=== PATIENT | female | born 1965 | race Caucasian/White ===

== ENCOUNTER → 2016-12-12 | Outpatient (CLI) | payer BC, OTHER ==
[~2016-12-12] MED LIST: ANOR1AER INH; ASPI1TAB PO; ASPI81CH PO; ATEN50TA2 PO; CELE20TA PO; CIPR500T89 PO; CITA40TA4 PO; CRES40TA PO; KEPP1000 PO; KEPP500T6 PO; LOSA100T36 PO; MULTCAP PO; NORC10TA2 PO; OMEP20CA3 PO; TRAZ100T4 PO; TRAZ1TAB25 PO; URIB118C PO; ZETI10TA2 PO
[2016-12-12 08:26] LABS: ALBUMIN 3.9 GM/DL (3.2-5.2); ALBUMIN/GLOBULIN RATIO 1.34 (1.00-1.93); BILIRUBIN,TOTAL 0.4 MG/DL (0.2-1.0); CALCIUM LEVEL 8.6 MG/DL (8.5-10.1); CREATININE FOR GFR 1.15 MG/DL (0.55-1.02); GLOMERULAR FILTRATION RATE 52.5 (>51); POTASSIUM SERUM 3.8 MEQ/L (3.5-5.1); TOTAL PROTEIN 6.8 GM/DL (6.4-8.2)
== END ==
LOC: M LAB 07:35
PROVIDERS: ATTEND Internal Medicine
DX: I10 Essential (primary) hypertension (principal); E78.2 Mixed hyperlipidemia; E11.9 Type 2 diabetes mellitus without complications

== ENCOUNTER → 2018-04-01 | Outpatient (CLI) | payer BC, OTHER ==
[2018-04-01 10:43] LABS: BASO # 0.1 10^3/uL (0.0-0.2); BASO % 0.5 % (0.0-1.0); EOS # 0.1 10^3/uL (0.0-0.50); EOS % 1.3 % (0.0-3.0); HEMATOCRIT 47.8 % (36.0-47.0); HEMOGLOBIN 16.1 g/dl (12.0-15.5); IMMATURE GRANULOCYTE % 0.4 % (0-3.0); LYMPH # 2.6 10^3/uL (1.5-4.5); LYMPH % 26.4 % (24.0-44.0); MEAN CORPUSCULAR HEMOGLOBIN 30.1 pg (27.0-33.0); MEAN CORPUSCULAR HGB CONC 33.7 g/dl (32.0-36.5); MEAN CORPUSCULAR VOLUME 89.3 fl (80.0-96.0); MONO # 0.5 10^3/uL (0.0-0.8); MONO % 4.9 % (0.0-5.0); NEUTROPHILS # 6.5 10^3/uL (1.8-7.7); NEUTROPHILS % 66.5 % (36.0-66.0); PLATELET COUNT, AUTOMATED 220 10^3/uL (150-450); RED BLOOD COUNT 5.35 10^6/uL (4.00-5.40); RED CELL DISTRIBUTION WIDTH 15.3 % (11.5-14.5); WHITE BLOOD COUNT 9.7 10^3/uL (4.0-10.0)
[2018-04-01 11:11] LABS: ALBUMIN 4.1 GM/DL (3.2-5.2); ALBUMIN/GLOBULIN RATIO 1.32 (1.00-1.93); ALKALINE PHOSPHATASE 77 U/L (45-117); ALT/SGPT 38 U/L (12-78); ANION GAP 9 MEQ/L (8-16); AST/SGOT 25 U/L (7-37); BILIRUBIN,TOTAL 0.3 MG/DL (0.2-1.0); BLOOD UREA NITROGEN 15 MG/DL (7-18); CALCIUM LEVEL 9.3 MG/DL (8.5-10.1); CARBON DIOXIDE LEVEL 31 MEQ/L (21-32); CHLORIDE LEVEL 106 MEQ/L (98-107); CHOLESTEROL LEVEL 197 MG/DL (<200); CHOLESTEROL RISK RATIO 4.191 (<5); CREATININE FOR GFR 0.93 MG/DL (0.55-1.30); FERRITIN 45 NG/ML (8-252); FOLATE 22.9 NG/ML (>5.4); GLOMERULAR FILTRATION RATE > 60.0 (>51); GLUCOSE, FASTING 120 MG/DL (70-100); HDL CHOLESTEROL 47 MG/DL (>40); IRON (FE) 76 UG/DL (50-170); LDL CHOLESTEROL 80.4 MG/DL (<100); NON-HDL-C 150 MG/DL; PERCENT SATURATION 18.8 % (13.2-45.0); POTASSIUM SERUM 3.6 MEQ/L (3.5-5.1); SODIUM LEVEL 146 MEQ/L (136-145); THYROID STIMULATING HORMONE 0.378 uIU/ML (0.358-3.740); TOTAL IRON BINDING CAPACITY 404 UG/DL (250-450); TOTAL PROTEIN 7.2 GM/DL (6.4-8.2); TRIGLYCERIDES LEVEL 348 MG/DL (<150); VITAMIN B12 LEVEL 626 PG/ML (247-911)
[2018-04-01 11:15] LABS: ESTIMATED AVERAGE GLUCOSE 154 MG/DL (60-110)
== END ==
LOC: M LAB 10:00
DX: E11.9 Type 2 diabetes mellitus without complications (principal); E78.5 Hyperlipidemia, unspecified; R53.83 Other fatigue
CPT/HCPCS: 82746

== ENCOUNTER → 2018-05-14 | Outpatient (CLI) | payer BC, OTHER ==
[2018-05-19 08:06] LABS: LEVETIRACETAM (KEPPRA) 46.6 ug/mL (10.0-40.0)
== END ==
LOC: M LAB 16:03
DX: R56.9 Unspecified convulsions (principal)
CPT/HCPCS: 36415

== ENCOUNTER → 2018-06-11 | Outpatient (CLI) | payer BC, OTHER ==
[2018-06-14 08:29] LABS: LEVETIRACETAM (KEPPRA) 43.3 ug/mL (10.0-40.0)
== END ==
LOC: M LAB 15:54
DX: R56.9 Unspecified convulsions (principal)
CPT/HCPCS: 36415

== ENCOUNTER → 2018-06-30 | Outpatient (CLI) | payer BC, OTHER ==
[2018-07-03 14:17] LABS: LEVETIRACETAM (KEPPRA) 14.8 ug/mL (10.0-40.0)
== END ==
LOC: M LAB 15:40
DX: Z51.81 Encounter for therapeutic drug level monitoring (principal); Z79.899 Other long term (current) drug therapy; R56.9 Unspecified convulsions
CPT/HCPCS: 80180

== ENCOUNTER → 2018-06-30 | Outpatient (CLI) | payer BC, OTHER ==
[2018-06-30 17:16] LABS: ESTIMATED AVERAGE GLUCOSE 128 MG/DL (60-110); HEMOGLOBIN A1c 6.1 %
== END ==
LOC: M LAB 15:36
DX: E11.9 Type 2 diabetes mellitus without complications (principal); R56.9 Unspecified convulsions
CPT/HCPCS: 83036

== ENCOUNTER → 2019-01-15 | Outpatient (REF) | payer OTHER ==
[~2019-01-15] MED LIST changes: -ASPI1TAB PO; -ASPI81CH PO; +ASPI81CH49 PO; +ASPI81TA26 PO; +CIPR-249 PO; -CIPR500T89 PO; -KEPP1000 PO; +KEPP10002 PO; +KEPP1TAB PO; -KEPP500T6 PO; -LOSA100T36 PO; +LOSA100T50 PO; -NORC10TA2 PO; +NORC1TAB5 PO; +TRAZ-163 PO; -TRAZ100T4 PO; -ZETI10TA2 PO; +ZETI10TA30 PO
[2019-01-17 14:43] LABS: HPV HYBRID CAPTURE II Negative (Negative)
== END ==
LOC: M SFHCWAGY 14:32
PROVIDERS: ATTEND Nurse Practitioner Women's Health
DX: Z12.4 Encounter for screening for malignant neoplasm of cervix (principal)
CPT/HCPCS: 87624; G0123

== ENCOUNTER → 2019-01-15 | Outpatient (CLI) | payer BC ==
--- NOTE | 2019-01-15 17:45 | REPMRS ---
Patient History The patient states she had a clinical breast exam in 11/2018. Family history of ovarian cancer at age 49 in sister. Digital Woman Screen Mammo: January 15, 2019 - Exam #: [id number] Bilateral CC and MLO view(s) were taken. Technologist: Светлана Romero, Technologist Prior study comparison: April 02, 2016, bilateral digital woman screen mammo, performed at [facility]. December 28, 2011, bilateral digital woman screen mammo, performed at [facility]. June 30, 2009, bilateral digital woman screen mammo, performed at [facility]. FINDINGS: The breast tissue is heterogeneously dense. This may lower the sensitivity of mammography. There is a stable well-circumscribed nodular opacity in the superior aspect of the left breast unchanged from multiple prior studies. In addition however, there is a nodular soft tissue density in the right breast superiorly and medially which appears more prominent. This merits further evaluation. It measures 12 x 16 by 12 mm. There is a moderate amount of heterogeneously dense fibroglandular tissue which is fairly symmetric. There is no other interval development of dominant mass, architectural distortion, or clustered microcalcification typical of malignancy. There has been no other change in the appearance of the mammogram from the prior studies. 3-D tomosynthesis shows no additional findings. Assessment: BI-RADS/ACR category 0 mammogram, Incomplete: Need additional imaging evaluation and/or prior mammograms for comparison. There is a nodular soft tissue density in the right breast superiorly and medially which appears more prominent. This merits further evaluation. It measures 12 x 16 by 12 mm. Recommendation Ultrasound and special view mammogram of the right breast. This patient's Lifetime Breast Cancer RIsk is estimated at 10.2 %. This mammogram was interpreted with the aid of an FDA-approved computer-aided dectection system. Electronically Signed By: Stewart Mota MD 01/15/19 [id number]
== END ==
LOC: M WHC 14:47
PROVIDERS: ATTEND Nurse Practitioner Women's Health
DX: Z12.31 Encounter for screening mammogram for malignant neoplasm of breast (principal); Z80.41 Family history of malignant neoplasm of ovary; N63.20 Unspecified lump in the left breast, unspecified quadrant; N63.10 Unspecified lump in the right breast, unspecified quadrant

== ENCOUNTER → 2019-01-23 | Outpatient (CLI) | payer BC, OTHER ==
--- NOTE | 2019-01-23 12:09 | REP ---
DIGITAL DIAGNOSTIC RIGHT BREAST MAMMOGRAPHY WITH CAD AND FOCUSED RIGHT BREAST SONOGRAPHY: HISTORY: Screening mammography January 15, 2019 was BIRADS category 0 because of a nodular density superiorly and medially in the right breast which appear more prominent than the prior study. MAMMOGRAPHIC FINDINGS: Magnified focal spot compression CC true ML, and MLO views confirm the presence of a well-circumscribed oval-shaped nodule measuring 17 mm in the posterior medial right breast. No other mammographic abnormality is seen. Breast parenchyma remains heterogeneously dense. SONOGRAPHIC FINDINGS: The right breast is scanned from 12-o'clock position to 3-o'clock position. Heterogeneous fibroglandular background echotexture is seen. At 1-o'clock position, approximately 11 cm from the nipple, there is a 14 x 6 x 12 mm septated cyst. No internal echoes or Doppler flow. This has a benign appearance. IMPRESSION: BIRADS 2: BI-RADS/ACR category 2 mammogram. Benign Findings. BIRADS category 2 benign findings. Benign cyst superior medial quadrant right breast. Repeat screening mammography recommended 1 year. This mammogram was interpreted with the aid of an FDA-approved computer-aided detection system. The patient states she had a clinical breast exam in November 2018. The patient letter being requested is M1 dense. Electronically Signed by Caesar Mota MD 01/23/2019 03:13 P
== END ==
LOC: M RAD 10:35
PROVIDERS: ATTEND Nurse Practitioner Women's Health
DX: N60.01 Solitary cyst of right breast (principal)

== ENCOUNTER → 2019-12-01 | Outpatient (CLI) | payer BC, OTHER ==
[~2019-12-01] MED LIST changes: +OMEP1CAP73 PO; -OMEP20CA3 PO; -TRAZ-163 PO; +TRAZ-257 PO; +ZETI10TA16 PO; -ZETI10TA30 PO
== END ==
LOC: M WUC 16:58
PROVIDERS: ATTEND Physician Assistant Medical
DX: G40.89 Other seizures (principal)

== ENCOUNTER → 2020-03-23 | Outpatient (CLI) | payer OTHER, BC ==
[2020-03-23 16:29] LABS: MEAN CORPUSCULAR HEMOGLOBIN 32.3 pg (27.0-33.0); MEAN CORPUSCULAR VOLUME 94.9 fl (80.0-96.0); PLATELET COUNT, AUTOMATED 167 10^3/uL (150-450); RED BLOOD COUNT 5.27 10^6/uL (4.00-5.40); WHITE BLOOD COUNT 10.2 10^3/uL (4.0-10.0)
[2020-03-23 16:37] LABS: ALT/SGPT 34 U/L (12-78); BILIRUBIN,TOTAL 0.5 MG/DL (0.2-1.0); BLOOD UREA NITROGEN 14 MG/DL (7-18); CALCIUM LEVEL 9.1 MG/DL (8.5-10.1); CARBON DIOXIDE LEVEL 31 MEQ/L (21-32); CHLORIDE LEVEL 107 MEQ/L (98-107); CHOLESTEROL LEVEL 216 MG/DL (<200); CHOLESTEROL RISK RATIO 5.268 (<5); FREE T4 1.19 NG/DL (0.76-1.46); GLOMERULAR FILTRATION RATE > 60.0 (>51); GLUCOSE, FASTING 108 MG/DL (70-100); HDL CHOLESTEROL 41 MG/DL (>40); LDL CHOLESTEROL 102 MG/DL (<100); NON-HDL-C 175 MG/DL; POTASSIUM SERUM 3.5 MEQ/L (3.5-5.1); SODIUM LEVEL 144 MEQ/L (136-145); THYROID STIMULATING HORMONE 0.644 uIU/ML (0.358-3.740); TOTAL PROTEIN 6.9 GM/DL (6.4-8.2); TRIGLYCERIDES LEVEL 365 MG/DL (<150)
[2020-03-23 16:39] LABS: TOTAL 25(OH) VITAMIN D 17.9 NG/ML (30.0-100.0)
[2020-03-23 16:46] LABS: HEMOGLOBIN A1c 6.6 %
== END ==
LOC: M WUC 13:16
PROVIDERS: ATTEND Physician Assistant
DX: E11.9 Type 2 diabetes mellitus without complications (principal); R53.83 Other fatigue; J44.9 Chronic obstructive pulmonary disease, unspecified; E78.1 Pure hyperglyceridemia

== ENCOUNTER → 2020-05-28 | Outpatient (CLI) | payer OTHER, BC | LOC: M LABSMTC 08:16 | PROVIDERS: ATTEND Anesthesiology | DX: Z01.812 Encounter for preprocedural laboratory examination (principal); Z11.59 Encounter for screening for other viral diseases ==

== ENCOUNTER 2020-06-02 08:36 | Day surgery (SDC) | payer BC, OTHER ==
[~2020-06-02] VITALS: Ht 157.5 cm; Wt 75.7 kg
[~2020-06-02 08:36] MED LIST changes: +NS 1,000 ML IV ONE
[2020-06-02] MEDS ORDERED: propofoL 200 MG/20 ML VIAL As Ordered ONE ×2 (10:33→10:55)
[2020-06-02] MEDS ORDERED: MIDAZOLAM INJ 2MG/2ML VIAL (J2250 PER 1MG) As Ordered ONE (10:41)
[2020-06-02 11:30] VITALS: BP 129/69
--- NOTE | 2020-06-15 11:30 | ROOR ---
Patient Name: Zuleika Montero Procedure Date: 06/02/2020 10:32 AM Date of : 1965 Age: 55 Room: [facility] Gender: Female Note Status: Finalized Procedure: Colonoscopy Indications: High risk colon cancer surveillance: Personal history of non-advanced adenoma, Last colonoscopy: July 2013 Providers: Jc Snyder MD Referring MD: Sylvie Barrios Requesting Provider: Medicines: Monitored Anesthesia Care Complications: No immediate complications. Procedure: Pre-Anesthesia Assessment: - Prior to the procedure, a History and Physical was performed, and patient medications and allergies were reviewed. The patient is competent. The risks and benefits of the procedure and the sedation options and risks were discussed with the patient. All questions were answered and informed consent was obtained. Patient identification and proposed procedure were verified by the physician, the nurse and the anesthesiologist in the procedure room. Mental Status Examination: alert and oriented. Airway Examination: normal oropharyngeal airway and neck mobility. CV Examination: regular rate and rhythm. Prophylactic Antibiotics: The patient does not require prophylactic antibiotics. Prior Anticoagulants: The patient has taken no previous anticoagulant or antiplatelet agents. ASA Grade Assessment: II - A patient with mild systemic disease. After reviewing the risks and benefits, the patient was deemed in satisfactory condition to undergo the procedure. The anesthesia plan was to use monitored anesthesia care (MAC). Immediately prior to administration of medications, the patient was re-assessed for adequacy to receive sedatives. The heart rate, respiratory rate, oxygen saturations, blood pressure, adequacy of pulmonary ventilation, and response to care were monitored throughout the procedure. The physical status of the patient was re-assessed after the procedure. The Colonoscope was introduced through the anus and advanced to the cecum, identified by appendiceal orifice and ileocecal valve. The colonoscopy was performed without difficulty. The patient tolerated the procedure well. The quality of the bowel preparation was excellent. Findings: The perianal and digital rectal examinations were normal. Three sessile polyps were found in the ascending colon and cecum. The polyps were 2 to 4 mm in size. These polyps were removed with a jumbo cold forceps. Resection and retrieval were complete. Estimated blood loss was minimal. The exam was otherwise without abnormality. Impression: - Three 2 to 4 mm polyps in the ascending colon and in the cecum, removed with a jumbo cold forceps. Resected and retrieved. - The examination was otherwise normal. Recommendation: - Discharge patient to home. - Resume previous diet. - Continue present medications. - Await pathology results. - If the pathology report reveals adenomatous tissue, then repeat the colonoscopy for surveillance in 3 years. Jc Snyder MD Jc Snyder MD 06/02/2020 11:20:17 AM Number of Addenda: 0 Note Initiated On: 06/02/2020 10:32 AM Estimated Blood Loss: Estimated blood loss was minimal.
== END 2020-06-02 11:42 | disposition home or self-care (01) ==
LOC: M OPP 08:36
PROVIDERS: ATTEND Surgery
DX: Z12.11 Encounter for screening for malignant neoplasm of colon (principal); Z86.010 Personal history of colon polyps; D12.0 Benign neoplasm of cecum; E11.9 Type 2 diabetes mellitus without complications; F17.210 Nicotine dependence, cigarettes, uncomplicated; Z79.82 Long term (current) use of aspirin; Z79.84 Long term (current) use of oral hypoglycemic drugs; Z79.899 Other long term (current) drug therapy; Z88.5 Allergy status to narcotic agent; Z91.041 Radiographic dye allergy status
CPT/HCPCS: 45380; 88305; J2250

== ENCOUNTER → 2020-07-07 | Outpatient (REF) | payer OTHER, BC ==
[~2020-07-07] MED LIST changes: -NS 1,000 ML IV ONE
== END ==
LOC: M SFHCPLAZ 10:01
PROVIDERS: ATTEND Physician Assistant
DX: R31.9 Hematuria, unspecified (principal)

== ENCOUNTER → 2020-07-08 | Outpatient (CLI) | payer BC, OTHER ==
--- NOTE | 2020-07-18 17:20 | REP ---
RENAL ULTRASOUND HISTORY: Hematuria. COMPARISON: Comparison study 06/20/2015. FINDINGS: Real-time sonographic evaluation of kidneys performed. Kidneys are normal in size and echotexture, right kidney measuring 10.1 x 4.5 x 4.8 cm and left kidney 10.3 x 4.6 x 4.7 cm. There is mild pelvocaliectasis of the right kidney which appears unchanged since the prior exam. Left renal collecting system is not dilated. Right kidney is again noted to be lobulated, unchanged. Possible 6 mm calcification is seen in the right lower pole collecting system. There is a left adrenal nodule which has been seen on prior CT scan in 2014 and is unchanged measuring about 2 cm in diameter, compatible with an adenoma. The urinary bladder is mildly distended and grossly unremarkable. Ureteral jets could not be seen with Doppler color evaluation. IMPRESSION: Compared to the prior study of 06/20/2015, there is no change in the right-sided pelvocaliectasis. There may be a 6 mm calcification in the right lower pole collecting system. No hydronephrosis or nephrolithiasis left kidney. Stable left adrenal adenoma. MTDD
== END ==
LOC: M RAD 12:59
PROVIDERS: ATTEND Physician Assistant
DX: R31.9 Hematuria, unspecified (principal); D35.02 Benign neoplasm of left adrenal gland; N28.89 Other specified disorders of kidney and ureter

== ENCOUNTER → 2020-07-26 | Outpatient (CLI) | payer OTHER, BC | LOC: M WUC 16:37 | PROVIDERS: ATTEND Physician Assistant Medical | DX: G40.909 Epilepsy, unspecified, not intractable, without status epilepticus (principal) ==

== ENCOUNTER → 2021-03-01 | Outpatient (CLI) | payer OTHER, BC | LOC: M WUC 15:44 | PROVIDERS: ATTEND Physician Assistant Medical | DX: R56.9 Unspecified convulsions (principal) ==

== ENCOUNTER → 2021-03-01 | Outpatient (CLI) | payer OTHER, BC ==
[2021-03-01 21:04] LABS: BLOOD UREA NITROGEN 15 MG/DL (7-18); CARBON DIOXIDE LEVEL 28 MEQ/L (21-32); CHLORIDE LEVEL 111 MEQ/L (98-107); CREATININE FOR GFR 0.75 MG/DL (0.55-1.30); GLOMERULAR FILTRATION RATE > 60.0 (>51); GLUCOSE, FASTING 118 MG/DL (70-100); POTASSIUM SERUM 3.6 MEQ/L (3.5-5.1); SODIUM LEVEL 147 MEQ/L (136-145)
[2021-03-01 21:05] LABS: ALBUMIN 3.9 GM/DL (3.2-5.2); ALT/SGPT 25 U/L (12-78); BILIRUBIN,TOTAL 0.3 MG/DL (0.2-1.0); CALCIUM LEVEL 8.8 MG/DL (8.5-10.1); CHOLESTEROL LEVEL 228 MG/DL (<200); CHOLESTEROL RISK RATIO 5.302 (<5); HDL CHOLESTEROL 43 MG/DL (>40); LDL CHOLESTEROL 116 MG/DL (<100); NON-HDL-C 185 MG/DL; TOTAL PROTEIN 6.6 GM/DL (6.4-8.2); TRIGLYCERIDES LEVEL 343 MG/DL (<150)
[2021-03-01 21:51] LABS: HEMOGLOBIN A1c 6.5 %
== END ==
LOC: M WUC 15:41
PROVIDERS: ATTEND Physician Assistant
DX: E11.9 Type 2 diabetes mellitus without complications (principal); E78.1 Pure hyperglyceridemia

== ENCOUNTER → 2021-03-13 | Outpatient (CLI) | payer BC, OTHER ==
--- NOTE | 2021-03-13 08:23 | REP ---
INDICATION: HEMATURIA COMPARISON: 07/11/2015 TECHNIQUE: Axial noncontrast images from the lung bases to the pubic symphysis with coronal and sagittal reformations. This CT examination was performed using the following dose reduction techniques: Automated exposure control, adjustment of mA and/or kv according to the patient's size, and use of iterative reconstruction technique. FINDINGS: Lung bases are clear. Visualized heart and pericardium normal. Liver demonstrates stable hypodensities compatible with small benign cysts. Cholelithiasis noted without acute cholecystitis. The spleen, pancreas, and right adrenal gland are normal. Stable 2.2 cm left adrenal adenoma. Right kidney demonstrates chronic hydronephrosis without obstructing ureteral calculus. Bilateral nonobstructing renal calculi are identified measuring up to approximately 5 mm in the right kidney and 2-3 mm in the left kidney. The enteric system is unremarkable and without obstruction or acute inflammatory process. Normal terminal ileum and appendix identified in the right lower quadrant. Sigmoid diverticula noted without acute diverticulitis. Pelvis demonstrates normal bladder and age-appropriate uterus/adnexa. No ascites. No free air. No adenopathy. No focal inflammatory stranding. Abdominal aorta without aneurysm. Musculoskeletal structures are intact and without acute osseous abnormality. IMPRESSION: 1. Chronic stable mild right hydronephrosis along with bilateral nonobstructing renal calculi. 2. Stable hepatic hypodensities compatible with benign cysts. 3. Stable benign left adrenal adenoma. 4. Suggestions for cholelithiasis without acute cholecystitis. 5. Diverticulosis. <Electronically signed by Kurt Menezes > 03/13/21 0819
== END ==
LOC: M RAD 07:35
PROVIDERS: ATTEND Physician Assistant
DX: R31.9 Hematuria, unspecified (principal)

== ENCOUNTER → 2022-11-16 | Outpatient (REF) | payer OTHER ==
[~2022-11-16] MED LIST changes: -CITA40TA4 PO; +CITA40TA7 PO; +LOSA100T45 PO; -LOSA100T50 PO
[2022-11-16 17:17] LABS: THYROID STIMULATING HORMONE 0.911 uIU/ML (0.55-4.78)
[2022-11-16 17:21] LABS: ALBUMIN 3.8 G/DL (3.2-5.2); ALKALINE PHOSPHATASE 113 U/L (46-116); ALT/SGPT 13 U/L (7.0-40); AST/SGOT < 8 U/L (<34); BILIRUBIN,TOTAL 0.5 MG/DL (0.3-1.2); BLOOD UREA NITROGEN 13 MG/DL (9-23); CALCIUM LEVEL 9.3 MG/DL (8.5-10.1); CARBON DIOXIDE LEVEL 28 MMOL/L (20-31); CHLORIDE LEVEL 105 MMOL/L (98-107); CHOLESTEROL LEVEL 326 MG/DL (<200); CHOLESTEROL RISK RATIO 10.83 (<5); CREATININE FOR GFR 0.75 MG/DL (0.55-1.30); GLOMERULAR FILTRATION RATE > 60.0 (>51); GLUCOSE, FASTING 102 MG/DL (60-100); HDL CHOLESTEROL 30.1 MG/DL (>40); LDL CHOLESTEROL 217.3 MG/DL (<100); NON-HDL-C 296 MG/DL; POTASSIUM SERUM 4.9 MMOL/L (3.5-5.1); SODIUM LEVEL 139 MMOL/L (136-145); TOTAL PROTEIN 6.5 G/DL (5.7-8.2); TRIGLYCERIDES LEVEL 393 MG/DL (<150)
[2022-11-16 17:48] LABS: HEMOGLOBIN A1c 5.8 % (4.0-6.0)
== END ==
LOC: M LAB REF 16:23
PROVIDERS: ATTEND Nurse Practitioner Family
DX: E11.69 Type 2 diabetes mellitus with other specified complication (principal)

== ENCOUNTER → 2022-12-06 | Outpatient (CLI) | payer OTHER | LOC: M EKG 12:56 | PROVIDERS: ATTEND Nurse Practitioner Family | DX: Z79.899 Other long term (current) drug therapy (principal) ==

== ENCOUNTER → 2022-12-13 | Outpatient (REF) | payer OTHER, MEDICAID ==
[2022-12-13 19:21] LABS: MAU/CREAT RATIO 25.2 MCG/MG (0.0-30.0)
== END ==
LOC: M LAB REF 18:42
PROVIDERS: ATTEND Nurse Practitioner Family
DX: R80.9 Proteinuria, unspecified (principal)

== ENCOUNTER → 2023-09-23 | Outpatient (REF) | payer MEDICARE, MEDICAID ==
[~2023-09-23] MED LIST changes: +EZET10TA58 PO; -LOSA100T45 PO; +LOSA100T46 PO; -ZETI10TA16 PO
[2023-09-23 18:07] LABS: BASO # 0.1 10^3/uL (0.0-0.2); BASO % 0.6 % (0.0-1.0); EOS # 0.2 10^3/uL (0.0-0.5); HEMATOCRIT 43.2 % (36.0-47.0); HEMOGLOBIN 14.6 g/dl (12.0-15.5); LYMPH # 2.4 10^3/uL (1.5-5.0); LYMPH % 27.7 % (24.0-44.0); MEAN CORPUSCULAR HEMOGLOBIN 31.8 pg (27.0-33.0); MEAN CORPUSCULAR HGB CONC 33.8 g/dl (32.0-36.5); MEAN CORPUSCULAR VOLUME 94.1 fl (80.0-96.0); MONO # 0.5 10^3/uL (0.0-0.8); MONO % 5.7 % (2.0-8.0); NEUTROPHILS # 5.4 10^3/uL (1.5-8.5); NEUTROPHILS % 63.6 % (36.0-66.0); PLATELET COUNT, AUTOMATED 151 10^3/uL (150-450); RED BLOOD COUNT 4.59 10^6/uL (4.00-5.40); WHITE BLOOD COUNT 8.5 10^3/uL (4.0-10.0)
[2023-09-23 18:29] LABS: VALPROIC ACID (DEPAKOTE) 23.6 UG/ML (50.0-100.0)
[2023-09-23 18:31] LABS: BLOOD UREA NITROGEN 16 MG/DL (9-23); CALCIUM LEVEL 8.9 MG/DL (8.3-10.6); CARBON DIOXIDE LEVEL 32 MMOL/L (20-31); CHLORIDE LEVEL 107 MMOL/L (98-107); CHOLESTEROL LEVEL 163 MG/DL (<200); CHOLESTEROL RISK RATIO 5.14 (<5); CREATININE FOR GFR 0.67 MG/DL (0.55-1.30); GLOMERULAR FILTRATION RATE > 60.0 (>45); GLUCOSE, FASTING 125 MG/DL (74-106); HDL CHOLESTEROL 31.7 MG/DL (>40); LDL CHOLESTEROL 62.1 MG/DL (<100); NON-HDL-C 131.3 MG/DL; POTASSIUM SERUM 3.2 MMOL/L (3.5-5.1); SODIUM LEVEL 145 MMOL/L (136-145); TRIGLYCERIDES LEVEL 346 MG/DL (<150)
[2023-09-23 18:54] LABS: HEMOGLOBIN A1c 5.4 % (4.0-6.0)
[2023-09-23 19:47] LABS: CREATININE, URINE 128.2 MG/DL; MAU/CREAT RATIO 17.1 MCG/MG (0.0-30.0)
== END ==
LOC: M LAB REF 16:20
PROVIDERS: ATTEND Nurse Practitioner Family
DX: I10 Essential (primary) hypertension (principal); R63.4 Abnormal weight loss; G40.909 Epilepsy, unspecified, not intractable, without status epilepticus; E78.2 Mixed hyperlipidemia

== ENCOUNTER → 2024-01-02 | Outpatient (CLI) | payer OTHER | LOC: M PLAIMG 10:57 | PROVIDERS: ATTEND Nurse Practitioner Family | DX: R01.1 Cardiac murmur, unspecified (principal) ==

== ENCOUNTER → 2024-02-24 | Outpatient (REF) | payer OTHER ==
[2024-02-24 14:15] LABS: BLOOD UREA NITROGEN 17 MG/DL (9-23); CALCIUM LEVEL 9.2 MG/DL (8.3-10.6); CARBON DIOXIDE LEVEL 33 MMOL/L (20-31); CHLORIDE LEVEL 107 MMOL/L (98-107); CHOLESTEROL LEVEL 129 MG/DL (<200); CHOLESTEROL RISK RATIO 4.28 (<5); CREATININE FOR GFR 0.69 MG/DL (0.55-1.30); GLOMERULAR FILTRATION RATE > 60.0 (>45); GLUCOSE, FASTING 100 MG/DL (74-106); HDL CHOLESTEROL 30.1 MG/DL (>40); LDL CHOLESTEROL 47.7 MG/DL (<100); MAGNESIUM LEVEL 1.7 MG/DL (1.8-2.4); NON-HDL-C 98.9 MG/DL; POTASSIUM SERUM 3.8 MMOL/L (3.5-5.1); SODIUM LEVEL 142 MMOL/L (136-145); TRIGLYCERIDES LEVEL 256 MG/DL (<150)
[2024-02-24 14:29] LABS: HEMOGLOBIN A1c 5.7 % (4.0-6.0)
[2024-02-24 14:31] LABS: CREATININE, URINE 58.3 MG/DL; MALB URINE SIEMENS < 3.0 MG/L; MAU/CREAT RATIO 5.1 MCG/MG (0.0-30.0)
== END ==
LOC: M LAB REF 12:40
PROVIDERS: ATTEND Nurse Practitioner Family
DX: R80.9 Proteinuria, unspecified (principal); E87.6 Hypokalemia; E11.9 Type 2 diabetes mellitus without complications; E78.2 Mixed hyperlipidemia

== ENCOUNTER → 2024-09-11 | Outpatient (CLI) | payer OTHER | LOC: M WUC 15:14 | PROVIDERS: ATTEND Nurse Practitioner Family | DX: M79.675 Pain in left toe(s) (principal); B35.1 Tinea unguium ==

== ENCOUNTER → 2025-01-28 | Outpatient (REF) | payer OTHER, SELFPAY ==
[2025-01-28 14:38] LABS: BLOOD UREA NITROGEN 13 MG/DL (9-23); CALCIUM LEVEL 9.2 MG/DL (8.3-10.6); CARBON DIOXIDE LEVEL 29 MMOL/L (20-31); CHLORIDE LEVEL 110 MMOL/L (98-107); CREATININE FOR GFR 0.67 MG/DL (0.55-1.30); GLOMERULAR FILTRATION RATE > 90.0 (>45); GLUCOSE, FASTING 124 MG/DL (74-106); MAGNESIUM LEVEL 1.8 MG/DL (1.8-2.4); POTASSIUM SERUM 3.3 MMOL/L (3.5-5.1); SODIUM LEVEL 145 MMOL/L (136-145)
[2025-01-28 14:57] LABS: HEMOGLOBIN A1c 5.4 % (4.0-6.0)
== END ==
LOC: M LAB REF 13:53
PROVIDERS: ATTEND Nurse Practitioner Family
DX: Z51.81 Encounter for therapeutic drug level monitoring (principal)

== ENCOUNTER → 2025-02-12 | Outpatient (REF) | payer OTHER ==
[2025-02-12 14:08] LABS: CHOLESTEROL RISK RATIO 4.06 (<5); HDL CHOLESTEROL 40.1 MG/DL (>40); LDL CHOLESTEROL 77.5 MG/DL (<100); NON-HDL-C 122.9 MG/DL
[2025-02-12 14:42] LABS: HEMOGLOBIN A1c 5.6 % (4.0-6.0)
== END ==
LOC: M LAB REF 13:12
PROVIDERS: ATTEND Nurse Practitioner Family
DX: E11.9 Type 2 diabetes mellitus without complications (principal)

== ENCOUNTER → 2025-07-12 | Outpatient (CLI) | payer BC ==
[2025-07-12 10:21] LABS: CHOLESTEROL LEVEL 168 MG/DL (<200); CHOLESTEROL RISK RATIO 4.69 (<5); NON-HDL-C 132.2 MG/DL; TRIGLYCERIDES LEVEL 465 MG/DL (<150)
[2025-07-12 10:36] LABS: ESTIMATED AVERAGE GLUCOSE 114.0 MG/DL (60-110)
== END ==
LOC: M LAB 07:47
PROVIDERS: ATTEND Nurse Practitioner Family
DX: E11.9 Type 2 diabetes mellitus without complications (principal)